=== PATIENT | female | born 1945 | race Caucasian/White ===

== ENCOUNTER 2021-09-12 13:28 | Observation (INO) | payer MEDICARE ==
[2021-09-12] MEDS ORDERED: Promethazine HCl 25 MG/ML VIAL ONE (13:47)
[2021-09-12 13:58] LABS: #Monocytes 0.2 10x3/uL (0.0-1.1); #Neutrophils 5.3 10x3/uL (1.5-8.4); %Basophils 0.2 % (0.0-2.0); %Lymphocytes 14.4 % (18.0-47.0); %Monocytes 2.8 % (0.0-10.0); %Neutrophils 82.3 % (40.0-75.0); Hemoglobin 15.2 g/dL (12.0-15.5); Mean Corpuscular HGB CONC 34.5 g/dL (32.0-36.0); Mean Corpuscular Hemoglobin 29.6 pg (27.0-33.0); Mean Corpuscular Volume 85.6 fl (81.6-98.3); Mean Platelet Volume 9.5 fl (7.4-10.4); Platelet Count 204 10x3/uL (150-450); RBC Distribution Width 13.2 % (11.5-14.5); Red Blood Cell (RBC) Count 5.14 10x6/uL (3.90-5.03); White Blood Cell (WBC) Count 6.4 10x3/uL (3.5-10.5)
[2021-09-12 14:10] LABS: ALT (SGPT) 19 U/L (8-55); AST (SGOT) 31 U/L (5-34); Albumin 5.2 g/dL (3.4-4.8); Alkaline Phosphatase 81 U/L (40-110); Anion Gap 16 mmol/L (10-20); BUN (Urea Nitrogen) 10 mg/dL (9.8-20.1); Bilirubin, Total 0.9 mg/dL (0.2-1.2); Calc. Creatinine Clearance 0 mL/min (70-130); Calcium 10.3 mg/dL (7.8-10.44); Carbon Dioxide 25 mmol/L (23-31); Chloride 98 mmol/L (98-107); Estimated GFR 76; Globulin 2.8 g/dL (2.4-3.5); Glucose 154 mg/dL (83-110); Lipase 46 U/L (8-78); Potassium 3.8 mmol/L (3.5-5.1); Sodium 135 mmol/L (136-145)
[2021-09-12] MEDS ORDERED: Iopamidol 300 61% 100 ML VIAL FS ONE (14:10)
[2021-09-12 15:54] LABS: Bilirubin Neg (Negative); Blood, Urine 25 (Negative); Clarity Clear (Clear); Glucose, Urine (Dipstick) Normal (Negative); Ketone, Urine 50 mg/dL (Negative); Leukocyte Negative (Negative); Nitrite Negative (Negative); Protein, Urine (Dipstick) Negative (Neg-Trace); Specific Gravity, Urine 1.005 (1.002-1.036); Urobilinogen Normal mg/dL (Less than 2)
[2021-09-12] MEDS ORDERED: Nitroglycerin 2% Ointment 1 INCH/1 GM Packet ONE (16:06)
[2021-09-12 16:18] LABS: Bacteria/HPF None Seen HPF (None Seen); RBC/HPF 0-3 HPF (0-3); Squamous Epithelial None Seen HPF (0-3); WBC/HPF None Seen HPF (0-3)
[2021-09-12] MEDS ORDERED: Lidocaine Viscous Sol 2% 15 ml UD Cup ONE (17:21)
[2021-09-12] MEDS ORDERED: Mag-Al Plus 1200 MG/1200 MG/120 MG/30 ML UDCUP ONE (17:21)
[2021-09-12] MEDS ORDERED: Ondansetron PF 4 MG/2 ML Vial ONE ×2 (17:22)
[2021-09-12] MEDS ORDERED: Aspirin Chewable 81 MG TAB ONE (17:22)
[2021-09-12 18:06] LABS: Troponin I 0.068 ng/mL (< 0.028)
[2021-09-12] MEDS ORDERED: hydrALAZINE 20 MG/ML VIAL SLOW IVP PRN (18:46)
[2021-09-12] MEDS ORDERED: Ondansetron ODT 4 MG TAB PO PRN (18:47)
[2021-09-12] MEDS ORDERED: Acetaminophen 325 MG TAB PO PRN (18:47)
[2021-09-12] MEDS ORDERED: Ondansetron PF 4 MG/2 ML Vial IVP PRN (18:47)
[2021-09-12] MEDS ORDERED: Nitroglycerin 0.4 MG TAB (25 Tab Bottle) SL PRN (18:48)
[2021-09-12] MEDS ORDERED: Promethazine HCl 25 MG in Sodium Chloride 0.9% 50 ML IVPB PRN (18:50)
[2021-09-12] MEDS ORDERED: Electrolyte Replacement Protocol FS SCH (19:00)
[2021-09-12] MEDS ORDERED: Pantoprazole 40 MG VIAL IVP SCH (20:30)
[2021-09-12 23:45] VITALS: BMI 20.2
[2021-09-13] MEDS: Sodium Chloride 0.9% 1,000 ML IV SCH ×2 (00:08→05:00)
[2021-09-13] MEDS: Nitroglycerin 2% Ointment 1 INCH/1 GM Packet TOP SCH ×2 (00:26→04:43)
[2021-09-13 02:34] LABS: SARS-CoV-2 NAA Rapid Test Not Detected (NotDetected)
[2021-09-13 04:49] LABS: #Monocytes 0.6 10x3/uL (0.0-1.1); #Neutrophils 4.4 10x3/uL (1.5-8.4); %Basophils 0.2 % (0.0-2.0); %Lymphocytes 20.2 % (18.0-47.0); %Monocytes 9.4 % (0.0-10.0); Hemoglobin 14.3 g/dL (12.0-15.5); Mean Corpuscular HGB CONC 34.5 g/dL (32.0-36.0); Mean Platelet Volume 9.8 fl (7.4-10.4); Platelet Count 186 10x3/uL (150-450); RBC Distribution Width 13.3 % (11.5-14.5); Red Blood Cell (RBC) Count 4.93 10x6/uL (3.90-5.03); White Blood Cell (WBC) Count 6.3 10x3/uL (3.5-10.5)
[2021-09-13 05:16] LABS: Anion Gap 14 mmol/L (10-20); BUN (Urea Nitrogen) 8 mg/dL (9.8-20.1); Calc. Creatinine Clearance 55 mL/min (70-130); Calcium 9.3 mg/dL (7.8-10.44); Carbon Dioxide 24 mmol/L (23-31); Cardiac Risk 1.8 (Less than 4.5); Chloride 101 mmol/L (98-107); Cholesterol 141 mg/dl (< 200 Desired); Estimated GFR 86; Glucose 112 mg/dL (83-110); HDL Cholesterol 80 mg/dL (>60 Neg Risk); LDL Cholesterol, Calculated 55 mg/dL; Magnesium 2.1 mg/dL (1.6-2.6); Potassium 3.4 mmol/L (3.5-5.1); Sodium 136 mmol/L (136-145); Triglycerides 29 mg/dL (Less than 150)
[2021-09-13] MEDS: Potassium Chloride 20 MEQ in Premix Bag 1 BAG IVPB SCH ×2 (06:18→09:05)
[2021-09-13] MEDS ORDERED: Enoxaparin Sodium 40 MG/0.4 ML SYRINGE SC SCH (09:00)
[2021-09-13] MEDS ORDERED: Pantoprazole 40 MG VIAL IVP SCH (09:00)
[2021-09-13] MEDS ORDERED: Amlodipine 5 MG TAB PO SCH (09:00)
[2021-09-13] MEDS ORDERED: Aspirin 81 mg Enteric Coated Tablet PO SCH (09:00)
[2021-09-13] MEDS ORDERED: Aspirin Chewable 81 MG TAB PO SCH (09:00)
[2021-09-13 12:34] LABS: Hemoglobin A1c 5.5 % (4.0-6.0)
[2021-09-13 13:25] VITALS: BP 159/74; TEMP 99.8
== END 2021-09-13 16:14 | disposition home or self-care (01) ==
LOC: CSHERS 13:28 → CSHTELE 21:48
PROVIDERS: ADMIT Internal Medicine; ATTEND Internal Medicine
DX: R07.89 Other chest pain (principal); R10.13 Epigastric pain; R11.2 Nausea with vomiting, unspecified; I10 Essential (primary) hypertension; Z20.822 Contact with and (suspected) exposure to COVID-19
CPT/HCPCS: 71045; 74177; 80048; 80053; 80061; 83036; 83690; 83735; 84443; 84484 ×2; 85025 ×2; 93005; 93306; 94760 ×3; 96372; 96374; 96375 ×2; 96376; 99285; G0378 ×3; U0002; 36415; 81003; 81015; C9113; J0360; J1650; J2405; J2550; J3480; J7050; Q0162; Q9967

== ENCOUNTER 2022-08-07 09:09 | Outpatient (CLI) | payer MEDICARE | END 2022-08-07 09:10 | disposition home or self-care (01) | LOC: CSHMAMMO 09:09 | PROVIDERS: ATTEND Nurse Practitioner Family | DX: M81.0 Age-related osteoporosis without current pathological fracture (principal) | CPT/HCPCS: 77080 ==